=== PATIENT | male | born 1980 | race Caucasian/White ===

== ENCOUNTER 2017-03-16 15:56 | Emergency (ER) | payer BC ==
[~2017-03-16] VITALS: Ht 170.2 cm; Wt 102.1 kg
[2017-03-16] MEDS ORDERED: LISI10TA4 PO (16:02)
--- NOTE | 2017-03-16 17:03 | REP ---
Clinical: Right testicular pain and swelling. Technique: Real time smiley scale and color Doppler evaluation using linear high frequency and curved array transducers. Findings: The bilateral testicles are relatively normal in appearance, echogenicity and vascularity without evidence for torsion, orchitis, or mass lesion. The right epididymis is hyperemic, heterogeneous and enlarged consistent with right-sided epididymitis. A small right hydrocele is identified. The left epididymis is normal. Left varicoceles are identified measuring up to 3.5 mm maximal diameter. Right testicle measures 4.5 x 2.3 x 3.4 cm. Left testicle measures 4.7 x 2.3 x 2.5 cm. Impression: 1. Right sided epididymitis with small hydrocele. 2. Few left varicoceles up to 3.5 mm diameter. Signed by Galen Guevara MD 03/16/2017 04:55 P
[2017-03-16] MEDS ORDERED: DOXY100C37 PO (17:05)
[2017-03-16 17:10] VITALS: BP 120/81
[2017-03-16] MEDS ORDERED: DOXYCYCLINE HYCLATE 100 MG TAB PO ONE (17:15)
[2017-03-16] MEDS ORDERED: cefTRIAXone SOD 250 MG VIAL (J0696) IM ONE (17:15)
== END 2017-03-16 17:49 | disposition home or self-care (01) ==
LOC: M ED 16:20
DX: N45.1 Epididymitis (principal); I86.1 Scrotal varices; N43.3 Hydrocele, unspecified
CPT/HCPCS: 76870; 81001; 87491; 87591; 93976; 96372; 99282; J0696

== ENCOUNTER → 2018-03-20 | Outpatient (REF) | payer BC ==
[2018-03-20 15:10] LABS: ALBUMIN 4.1 GM/DL (3.2-5.2); ALBUMIN/GLOBULIN RATIO 1.05 (1.00-1.93); ALKALINE PHOSPHATASE 104 U/L (45-117); ALT/SGPT 83 U/L (12-78); ANION GAP 5 MEQ/L (8-16); AST/SGOT 37 U/L (7-37); BILIRUBIN,TOTAL 0.9 MG/DL (0.2-1.0); BLOOD UREA NITROGEN 14 MG/DL (7-18); CALCIUM LEVEL 8.6 MG/DL (8.5-10.1); CARBON DIOXIDE LEVEL 26 MEQ/L (21-32); CHLORIDE LEVEL 108 MEQ/L (98-107); CHOLESTEROL LEVEL 173 MG/DL (<200); CHOLESTEROL RISK RATIO 3.931 (<5); CREATININE FOR GFR 0.89 MG/DL (0.70-1.30); GLOMERULAR FILTRATION RATE > 60.0 (>60); GLUCOSE, FASTING 88 MG/DL (70-100); HDL CHOLESTEROL 44 MG/DL (>40); NON-HDL-C 129 MG/DL; SODIUM LEVEL 139 MEQ/L (136-145); TRIGLYCERIDES LEVEL 95 MG/DL (<150)
[2018-03-20 15:24] LABS: BASO % 0.7 % (0.0-1.0); EOS # 0.5 10^3/uL (0.0-0.50); EOS % 9.3 % (0.0-3.0); HEMATOCRIT 46.2 % (42.0-52.0); HEMOGLOBIN 16.5 g/dl (13.5-17.5); IMMATURE GRANULOCYTE % 0.4 % (0-3.0); LYMPH # 1.9 10^3/uL (1.5-4.5); LYMPH % 32.7 % (24.0-44.0); MEAN CORPUSCULAR HEMOGLOBIN 32.3 pg (27.0-33.0); MEAN CORPUSCULAR HGB CONC 35.7 g/dl (32.0-36.5); MEAN CORPUSCULAR VOLUME 90.4 fl (80.0-96.0); MONO # 0.6 10^3/uL (0.0-0.8); MONO % 9.7 % (0.0-5.0); NEUTROPHILS # 2.7 10^3/uL (1.8-7.7); NEUTROPHILS % 47.2 % (36.0-66.0); PLATELET COUNT, AUTOMATED 220 10^3/uL (150-450); RED BLOOD COUNT 5.11 10^6/uL (4.30-6.10); WHITE BLOOD COUNT 5.7 10^3/uL (4.0-10.0)
== END ==
LOC: M LAB REF 14:23
DX: R41.3 Other amnesia (principal); I10 Essential (primary) hypertension
CPT/HCPCS: 84443

== ENCOUNTER → 2019-01-04 | Outpatient (REF) | payer OTHER ==
[~2019-01-04] MED LIST: DOXY100C37 PO; LISI10TA4 PO
[2019-01-07 18:24] LABS: INFLUENZA A AMPLIFICATION POSITIVE (NEGATIVE); INFLUENZA B AMPLIFICATION NEGATIVE (NEGATIVE)
== END ==
LOC: M LAB REF 17:54
PROVIDERS: ATTEND Physician Assistant Medical
DX: J11.1 Influenza due to unidentified influenza virus with other respiratory manifestations (principal)

== ENCOUNTER 2020-07-27 20:24 | Emergency (ER) | payer BC, SELFPAY ==
[~2020-07-27] VITALS: Ht 180.3 cm; Wt 102.7 kg
[2020-07-27] MEDS ORDERED: BUPR15TASR PO (20:33)
[2020-07-27] MEDS ORDERED: AMLO1TAB25 PO (20:33)
[2020-07-27] MEDS ORDERED: LOSA100T50 PO (20:33)
[2020-07-27] MEDS ORDERED: BOOSTRIX/ADACEL VACCINE (DIPHTH/PERTUSS/ACELL/TETANUS) 0.5ML SYR IM ONE (21:30)
[2020-07-27] MEDS ORDERED: KEFL500C17 PO (22:15)
[2020-07-27 22:29] VITALS: BP 136/89
--- NOTE | 2020-07-27 22:31 | REPVR ---
PROCEDURE INFORMATION: Exam: XR Left Femur Exam date and time: 07/27/2020 9:09 PM Age: 40 years old Clinical indication: Injury or trauma; Other: Metal; Wound; Thigh or upper leg; Left; With foreign body; Additional info: Foriegn body TECHNIQUE: Imaging protocol: XR Left femur. Views: 2 views. COMPARISON: No relevant prior studies available. FINDINGS: Bones/joints: Unremarkable. No acute fracture. Soft tissues: Small metallic foreign body in the mid superficial left thigh. IMPRESSION: Small metallic foreign body in the mid superficial left thigh. Electronically signed by: George Maddox On 07/27/2020 22:31:40 PM
== END 2020-07-27 22:25 | disposition home or self-care (01) ==
LOC: M ED 20:24
DX: S71.142A Puncture wound with foreign body, left thigh, initial encounter (principal); Y92.009 Unspecified place in unspecified non-institutional (private) residence as the place of occurrence of the external cause; Y93.89 Activity, other specified; Y99.9 Unspecified external cause status; I10 Essential (primary) hypertension; Z79.899 Other long term (current) drug therapy

== ENCOUNTER → 2020-09-06 | Outpatient (REF) | payer SELFPAY ==
[~2020-09-06] MED LIST changes: +AMLO1TAB25 PO; +BUPR15TASR PO; +KEFL500C17 PO; +LOSA100T50 PO
[2020-09-06 14:11] LABS: ALBUMIN 4.1 GM/DL (3.2-5.2); ALT/SGPT 64 U/L (12-78); BILIRUBIN,TOTAL 0.8 MG/DL (0.2-1.0); BLOOD UREA NITROGEN 12 MG/DL (7-18); CALCIUM LEVEL 9.1 MG/DL (8.5-10.1); CARBON DIOXIDE LEVEL 26 MEQ/L (21-32); CHLORIDE LEVEL 106 MEQ/L (98-107); CHOLESTEROL LEVEL 195 MG/DL (<200); CHOLESTEROL RISK RATIO 4.431 (<5); CREATININE FOR GFR 0.94 MG/DL (0.70-1.30); GLOMERULAR FILTRATION RATE > 60.0 (>60); GLUCOSE, FASTING 92 MG/DL (70-100); HDL CHOLESTEROL 44 MG/DL (>40); LDL CHOLESTEROL 135 MG/DL (<100); NON-HDL-C 151 MG/DL; SODIUM LEVEL 140 MEQ/L (136-145); TRIGLYCERIDES LEVEL 81 MG/DL (<150)
== END ==
LOC: M LAB REF 12:27
PROVIDERS: ATTEND Family Medicine Addiction Medicine
DX: I10 Essential (primary) hypertension (principal)

== ENCOUNTER → 2020-09-06 | Outpatient (CLI) | payer SELFPAY ==
--- NOTE | 2020-09-06 15:21 | REP ---
INDICATION: RIGHT SHOULDER PAIN/CERV RADICULOPATHY COMPARISON: None. TECHNIQUE: AP, lateral, flexion/extension, bilateral oblique, swimmer's and open-mouth views. FINDINGS: Alignment is maintained. There is no evidence for acute fracture / compression injury or subluxation. Minimal endplate sclerosis and disc space narrowing with osteophyte formation suggested at C5-6. Oblique views demonstrate patent neural foramen. Open mouth view demonstrates normal C1-C2 articulation and odontoid process. IMPRESSION: Minimal degenerative changes at C5-6. <Electronically signed by Galen Guevara > 09/06/20 [id number]
--- NOTE | 2020-09-06 16:21 | REP ---
INDICATION: RIGHT SHOULDER PAIN/CERV RADICULOPATHY COMPARISON: None. TECHNIQUE: Internal rotation, external rotation, and Y view. FINDINGS: No acute fracture or dislocation. The acromioclavicular and glenohumeral joints are intact. No periarticular calcifications or degenerative changes are appreciated. Sub acromial space is normal. Surrounding soft tissues are unremarkable. IMPRESSION: Normal right shoulder radiographs. <Electronically signed by Galen Guevara > 09/06/20 [id number]
== END ==
LOC: M RAD 10:18
PROVIDERS: ATTEND Family Medicine Addiction Medicine
DX: M25.519 Pain in unspecified shoulder (principal); M54.12 Radiculopathy, cervical region

== ENCOUNTER → 2022-09-18 | Outpatient (REF) | payer SELFPAY ==
[~2022-09-18] MED LIST changes: +DOXY-443 PO; -DOXY100C37 PO; +LISI10TA22 PO; -LISI10TA4 PO; +LOSA100T45 PO; -LOSA100T50 PO
[2022-09-18 18:45] LABS: ALBUMIN 4.1 G/DL (3.2-5.2); ALKALINE PHOSPHATASE 125 U/L (46-116); ALT/SGPT 81 U/L (7.0-40); AST/SGOT 34 U/L (<34); BILIRUBIN,TOTAL 0.6 MG/DL (0.3-1.2); BLOOD UREA NITROGEN 16 MG/DL (9-23); CALCIUM LEVEL 9.1 MG/DL (8.5-10.1); CARBON DIOXIDE LEVEL 25 MMOL/L (20-31); CHLORIDE LEVEL 102 MMOL/L (98-107); CHOLESTEROL LEVEL 181 MG/DL (<200); CHOLESTEROL RISK RATIO 4.04 (<5); CREATININE FOR GFR 0.89 MG/DL (0.70-1.30); GLOMERULAR FILTRATION RATE > 60.0 (>60); GLUCOSE, FASTING 98 MG/DL (60-100); HDL CHOLESTEROL 44.8 MG/DL (>40); NON-HDL-C 136 MG/DL; POTASSIUM SERUM 3.8 MMOL/L (3.5-5.1); SODIUM LEVEL 139 MMOL/L (136-145); THYROID STIMULATING HORMONE 2.283 uIU/ML (0.55-4.78); TOTAL PROTEIN 7.8 G/DL (5.7-8.2); TRIGLYCERIDES LEVEL 86 MG/DL (<150)
== END ==
LOC: M LAB REF 16:18
PROVIDERS: ATTEND Family Medicine Addiction Medicine
DX: I10 Essential (primary) hypertension (principal)